=== PATIENT | male | born 2000 | race Caucasian/White ===

== ENCOUNTER 2024-12-07 15:37 | Emergency (ER) | payer OTHER, SELFPAY ==
[2024-12-07 15:41] VITALS: BP 138/84; PULSE 95; RESP 18; TEMP 37.4; O2SAT 97; BMI 30.2
--- NOTE | 2024-12-07 15:54 | ED_ITS ---
HPI - Extremity Injury (Lower) General Chief Complaint: Extremity Pain/Injury, Lower Stated Complaint: rolled R ankle Time Seen by Provider: 12/07/24 15:49 History of Present Illness HPI Narrative: This 24-year-old male comes in with an injury to his right ankle that occurred yesterday. He twisted his ankle and now has significant swelling and bruising on the lateral aspect. He does not report any other injury. He is ambulatory and weight-bearing on this right ankle. Related Data Home Medications ?Medication ?Instructions ?Recorded ?Confirmed No Known Home Medications 12/07/24 12/07/24 Allergies Allergy/AdvReac Type Severity Reaction Status Date / Time No Known Drug Allergies Allergy Verified 12/07/24 15:48 Review of Systems Status of ROS: Reports: 10 or more systems reviewed and unremarkable except as noted in History and below Narrative: Constitutional: No fevers, no weight gain or loss. Eyes: No discharge. No vision changes. HENT: No congestion, no sore throat, no ear pain. Cardiovascular: No chest pain, no palpitations. Respiratory: No shortness of breath, no wheezes, no cough. Gastrointestinal: No abdominal pain, no vomiting, no diarrhea. Genitourinary: No dysuria, no hematuria. Musculoskeletal: Right ankle injury as described above. Skin: No rashes, no pruritis. Neurological: No dizziness, weakness, sensory change, speech change. Endo/Heme/Allergies: No bruising or bleeding. No polydipsia. Pysch: no suicidality, no anxiety, no insomnia. All other systems reviewed and are negative. Exam Narrative: Exam Narrative: Constitutional: Well-developed, well-nourished, no acute distress. HEENT: Normocephalic, atraumatic. Neck: Normal range of motion. Nontender. Supple. Heart: Intact distal pulses. Lungs: No chest discomfort. No wheezes, rhonchi, or rales. Abdomen: Nontender. Back: Normal range of motion. Extremities: Right ankle has significant swelling and bruising on the lateral aspect. Range of motion is mostly preserved but somewhat decreased with swelling. He is ambulatory. No joint effusion or ligament instability on exam. Skin: Intact. No rash. Warm. No erythema or pallor. Neurologic: No altered sensation. No weakness. Alert and oriented. Psychiatric: No suicidality. No anxiety or depression. No insomnia. Nursing notes and vitals signs are reviewed. Const: Vital Signs, click to edit/add: Vital Signs - 24 hr 12/07/24 15:41 Temperature 99.4 F Pulse Rate [Right Pulse Oximeter] 95 Respiratory Rate 18 Blood Pressure [Ri ght Upper Arm] 138/84 Pulse Oximetry 97 Oxygen Delivery Me thod Room Air Course Vital Signs Vital signs: Initial Vital Signs Temperature 99.4 F 12/07/24 15:41 Temperature Source Temporal Artery Scan 12/07/24 15:41 Pulse Rate 95 12/07/24 15:41 Pulse Rhythm Regular 12/07/24 15:41 Pulse Strength 3+ Normal 12/07/24 15:41 Respiratory Rate 18 12/07/24 15:41 Blood Pressure 138/84 12/07/24 15:41 Blood Pressure Mean 102 12/07/24 15:41 Blood Pressure Position Sitting 12/07/24 15:41 Pulse Oximetry 97 12/07/24 15:41 Oxygen Delivery Method Room Air 12/07/24 15:41 Vital Signs Temperature 99.4 F 12/07/24 15:41 Pulse Rate 95 12/07/24 15:41 Respiratory Rate 18 12/07/24 15:41 Blood Pressure 138/84 12/07/24 15:41 Pulse Oximetry 97 12/07/24 15:41 Oxygen Delivery Method Room Air 12/07/24 15:41 Temperature 99.4 F 12/07/24 15:41 Pulse Rate 95 12/07/24 15:41 Respiratory Rate 18 12/07/24 15:41 Blood Pressure 138/84 12/07/24 15:41 Pulse Oximetry 97 12/07/24 15:41 Oxygen Delivery Method Room Air 12/07/24 15:41 MDM - Extremity Injury (Lower) MDM Narrative Medical decision making narrative: This 24-year-old male comes in with an injury to his right ankle that occurred yesterday. X-ray images show no evidence of fracture but radiologist determines that it is a syndesmotic sprain. The patient is able to ambulate without too much difficulty. He did receive an Jeremias wrap and a also provided to return to work note. Imaging Data XR R Ankle: Radiologist's impression: 1. Syndesmotic sprain. 2. 3 millimeter corticated density between the lateral malleolus and the talus. The corticated margins suggests this is old. Discharge Plan Discharge Clinical Impression: Ankle sprain and strain Patient Disposition: Home, Self-Care Condition: Stable Additional Instructions: Increase activity as tolerated. Use [id number] medicines as needed and directed. Follow up with MD return if worsening. Prescriptions: No Action No Known Home Medications Stand Alone Forms: [employer] Info Instructions
--- NOTE | 2024-12-07 15:54 | CRLHL7_ITS ---
For Patients: As a result of the Century Cures Act, medical imaging exams and procedure reports are released immediately into your electronic medical record. You may view this report before your referring provider. If you have questions, please contact your health care provider. Indication: Rolled ankle. Technique: Ankle three views Comparison: None. Findings: Mild widening of the distal tibiofibular syndesmosis consistent with a syndesmotic sprain. The mortise is intact. 3 millimeter corticated density projects between the lateral malleolus and the talus on the frontal projection. No fracture lines. Soft tissue swelling about the ankle. No ankle joint effusion. Impression: 1. Syndesmotic sprain. 2. 3 millimeter corticated density between the lateral malleolus and the talus. The corticated margins suggests this is old. Dictated by Isai Rankin MD @ 12/07/2024 4:31:39 PM (Electronically Signed)
== END 2024-12-07 17:39 | disposition home or self-care (01) ==
PROVIDERS: Emergency Provider Emergency Medicine Emergency Medical Services
DX: S93.401A Sprain of unspecified ligament of right ankle, initial encounter (principal)
CPT/HCPCS: 73610; 99283; 99284

== ENCOUNTER 2025-03-29 10:57 | Emergency (ER) | payer OTHER, SELFPAY ==
[2025-03-29 11:13] VITALS: BP 121/83; PULSE 80; RESP 16; TEMP 36.6; O2SAT 98; BMI 30.5
[2025-03-29 11:38] LABS: Hematocrit 49.8 % (37.0-53.0); Hemoglobin* 17.1 gm/dL (13.5-17.5); Immature Granulocytes Abs Auto 0.02 K/uL (0.00-0.30); Immature Granulocytes Pct Auto 0.3 %; Lactate* 0.9 mmol/L (0.5-1.9); Mean Corpuscular HGB Conc 34 gm/dL (32-36); Mean Corpuscular Hemoglobin 31 pg (26-34); Mean Corpuscular Volume 89 fL (80-100); RDW Coefficient of Variation % 11.2 % (11.5-15.5); Red Blood Count 5.58 m/uL (4.30-5.90); White Blood Count* 7.47 K/uL (4.50-11.00)
--- NOTE | 2025-03-29 11:39 | ED.GENADULT ---
HPI - General Adult General Chief complaint: Nausea/Vomiting Stated complaint: cold sweats, headache Time Seen by Provider: 03/29/25 11:01 Source: patient Mode of arrival: ambulatory Limitations: no limitations History of Present Illness HPI narrative: 25-year-old male, generally healthy, presents today with cold sweats, headache, vomiting and diarrhea going on for 3 days. He states that he has a couple episodes of diarrhea per day. He vomits 2-3 times per day. He has not measured his temperatures at home. He denies chest pain, shortness of breath or new cough. He does smoke marijuana daily and has what he describes as a mild smoker's cough that is unchanged. He denies weight loss. He denies skin rashes. He denies any bug bites. He denies any blood in his stools. No urinary symptoms. Denies abdominal pain. Related Data Home Medications ?Medication ?Instructions ?Recorded ?Confirmed No Known Home Medications 12/07/24 12/07/24 Allergies Allergy/AdvReac Type Severity Reaction Status Date / Time No Known Drug Allergies Allergy Verified 12/07/24 15:48 Review of Systems Status of ROS: Reports: 10 or more systems reviewed and unremarkable except as noted in History and below [facility] [place] Social History Smoking Status: Current some day smoker How often do you have a drink containing alcohol: never How often do you have six or more drinks on one occasion: Never AUDIT-C Alcohol total score: 0 Non-prescribed substance use: marijuana (any form) service: No Exam Narrative: Exam Narrative: Well-nourished well-developed patient in no acute distress. Alert and oriented. Answers questions appropriately. Mood and affect are appropriate. Thoughts are goal oriented and rational. No tangential or magical thinking noted. Patient speaks in full sentences without needing to catch his breath. HEENT: Normocephalic atraumatic. Pupils are equally round reactive to light. Extraocular muscles are intact. Conjunctivae are moist without any icterus noted. Moist mucous membranes. Posterior pharynx is normal. Neck is soft without any lymphadenopathy or thyromegaly. No masses are appreciated. Cardiovascular: Heart is regular rate and rhythm S1 and S2 are present without any murmurs. Lungs: Clear to auscultation bilaterally no wheezes rhonchi or rales are appreciated. Patient takes deep breaths without any discomfort. Abdomen: Soft and nontender nondistended with normal bowel sounds. Extremities: Bilateral lower extremities are without edema. Normal DP and PT pulses. Skin: Well perfused without any obvious rashes. Dry. No diaphoresis. Const: Vital Signs, click to edit/add: Vital Signs - 24 hr 03/29/25 11:13 Temperature 98 F Pulse Rate [Pulse Oximeter] 80 Respiratory Rate 16 Blood Pressure [Ri ght Upper Arm] 121/83 Pulse Oximetry 98 Oxygen Delivery Me thod Room Air Course Course ED Course: IV was established and patient is given a L of normal saline, IV Toradol and Zofran. Workup unremarkable. Lipase just minimally elevated at 341. Patient feeling better after treatment. Vital Signs Vital signs: Initial Vital Signs Temperature 98 F 03/29/25 11:13 Temperature Source Temporal Artery Scan 03/29/25 11:13 Pulse Rate 80 03/29/25 11:13 Respiratory Rate 16 03/29/25 11:13 Blood Pressure 121/83 03/29/25 11:13 Blood Pressure Mean 95 03/29/25 11:13 Pulse Oximetry 98 03/29/25 11:13 Oxygen Delivery Method Room Air 03/29/25 11:13 Vital Signs Temperature 98 F 03/29/25 11:13 Pulse Rate 80 03/29/25 11:13 Respiratory Rate 16 03/29/25 11:13 Blood Pressure 121/83 03/29/25 11:13 Pulse Oximetry 98 03/29/25 11:13 Oxygen Delivery Method Room Air 03/29/25 11:13 Temperature 98 F 03/29/25 11:13 Pulse Rate 80 03/29/25 11:13 Respiratory Rate 16 03/29/25 11:13 Blood Pressure 121/83 03/29/25 11:13 Pulse Oximetry 98 03/29/25 11:13 Oxygen Delivery Method Room Air 03/29/25 11:13 Medications Administered Medications: Generic Name Dose Route Start Last Admin Trade Name Freq PRN Reason Stop Dose Admin Sodium Chloride 1,000 mls @ 1,000 mls/hr 03/29/25 11:30 03/29/25 11:41 0.9 % Sodium Chloride 1000 Ml IV 03/29/25 12:29 1,000 mls/hr .Q1H JONAS Administration Discontinued Medications Generic Name Dose Route Start Last Admin Trade Name Freq PRN Reason Stop Dose Admin Ketorolac Tromethamine 30 mg 03/29/25 11:23 03/29/25 11:41 Ketorolac 30 Mg/Ml Inj IVP 03/29/25 11:24 30 mg ONCE ONE Administration Ondansetron HCl 4 mg 03/29/25 11:39 03/29/25 11:46 Ondansetron 2 Mg/Ml Inj IVP 03/29/25 11:40 4 mg ONCE ONE Administration Medical Decision Making MDM Narrative Medical decision making narrative: 25-year-old male with probable gastroenteritis. Discussed symptomatic treatment and reasons for follow-up. Recommend low threshold for re-evaluation given slightly elevated lipase. Lab Data Lab results reviewed: Yes I reviewed the patient's lab results Labs: Lab Results 03/29/25 03/29/25 Range/Units 11:20 11:32 WBC 7.47 (4.50-11.00) K/uL RBC 5.58 (4.30-5.90) m/uL Hgb 17.1 (13.5-17.5) gm/dL Hct 49.8 (37.0-53.0) % MCV 89 (80-100) fL MCH 31 (26-34) pg MCHC 34 (32-36) gm/dL RDW Coeff of Bronson 11.2 L (11.5-15.5) % Plt Count 216 (140-440) K/uL Neut % (Auto) 68.7 (42.0-72.0) % Lymph % (Auto) 19.7 L (20-44) % Cochran % (Auto) 9.1 (0.0-11.0) % Eos % (Auto) 1.7 (0.0-7.0) % Baso % (Auto) 0.5 (0.0-3.0) % Neut # (Auto) 5.13 (1.7-7.0) K/uL Lymph # (Auto) 1.50 (0.90-2.90) K/uL Cochran # (Auto) 0.70 (0.00-0.90) K/UL Eos # (Auto) 0.13 (0.00-0.50) K/uL Baso # (Auto) 0.04 (0.00-0.30) K/uL Abs Immat Gran (auto) 0.02 (0.00-0.30) K/uL Imm/Tot Granulo (auto) 0.3 % Sodium 137 (135-149) mmol/L Potassium 4.7 (3.6-5.1) mmol/L Chloride 103 (96-114) mmol/L Carbon Dioxide 27 (20-32) mmol/L Anion Gap 7 (7-15) mEq/L BUN 13 (5-24) mg/dL Creatinine 1.0 (0.5-1.5) mg/dL Estimated Creat Clear 136.14 Estimated GFR 108 ml/min Glucose 87 (60-115) mg/dL Lactate 0.9 (0.5-1.9) mmol/L Calcium 9.7 (8.4-10.6) mg/dL Total Bilirubin 1.9 H (0.1-1.5) mg/dL Direct Bilirubin 0.1 (0.0-0.5) mg/dL AST 34 (12-35) U/L ALT 44 (4-50) U/L Alkaline Phosphatase 61 (40-150) U/L Total Protein 7.9 (6.0-8.3) g/dL Albumin 4.6 (3.3-5.0) g/dL Lipase 341 H (23-300) U/L SARS-CoV-2 (PCR) Negative SARS-CoV-2 (Negative) Monoscreen Negative (Negative) Influenza Type A (PCR) Negative PCR FLU A (Negative) Influenza Type B (PCR) Negative PCR FLU B (Negative) RSV (PCR) Negative PCR RSV (Negative) Discharge Plan Discharge Clinical Impression: Gastroenteritis Patient Disposition: Home, Self-Care Condition: Stable Additional Instructions: Make sure to stay well hydrated by drinking lots of water throughout the day. If you develop abdominal pain or vomiting worsens you should return to the emergency department right away. Okay to use Imodium as directed to slow down the diarrhea. Prescriptions: No Action No Known Home Medications Follow Up/Referrals: Provider,Not a Local [Primary Care Provider, Family Practice] Stand Alone Forms: [employer] Info Instructions
[2025-03-29] MEDS: ONDANSETRON 2 MG/ML inj 4 MG IVP (11:46)
[2025-03-29 11:50] LABS: Mono Screen* Negative (Negative)
[2025-03-29 11:53] LABS: Albumin* 4.6 g/dL (3.3-5.0); Chloride* 103 mmol/L (96-114); Sodium* 137 mmol/L (135-149)
[2025-03-29 11:54] LABS: Potassium* 4.7 mmol/L (3.6-5.1)
[2025-03-29 11:56] LABS: Alanine Aminotransferase* 44 U/L (4-50); Alkaline Phosphatase* 61 U/L (40-150); Anion Gap 7 mEq/L (7-15); Aspartate Amino Transferase* 34 U/L (12-35); Bilirubin Direct* 0.1 mg/dL (0.0-0.5); Bilirubin Total* 1.9 mg/dL (0.1-1.5); Blood Urea Nitrogen* 13 mg/dL (5-24); Calcium* 9.7 mg/dL (8.4-10.6); Carbon Dioxide* 27 mmol/L (20-32); Creatinine* 1.0 mg/dL (0.5-1.5); Est. Creatinine Clearance* 136.14; Estimated Glomerular Filt Rate 108 ml/min; Glucose* 87 mg/dL (60-115); Total Protein* 7.9 g/dL (6.0-8.3)
[2025-03-29 12:01] LABS: Lymphocytes Absolute Auto 1.50 K/uL (0.90-2.90); Slide Review Reflex No
[2025-03-29 12:08] LABS: PCR FLU A Negative PCR FLU A (Negative); PCR FLU B Negative PCR FLU B (Negative); PCR RSV Negative PCR RSV (Negative); SARS PCR* Negative SARS-CoV-2 (Negative)
== END 2025-03-29 12:33 | disposition home or self-care (01) ==
PROVIDERS: Emergency Provider Family Medicine
DX: K52.9 Noninfective gastroenteritis and colitis, unspecified (principal)
CPT/HCPCS: 36415; 80048; 80076; 83605; 83690; 85025; 86308; 87631; 96374; 96375; 99283; 99284; J1885; J2405; J7030